=== PATIENT | male | born 1990 | race Caucasian/White ===

== ENCOUNTER → 2023-08-09 | Outpatient (CLI) | payer SELFPAY ==
--- NOTE | 2023-08-09 16:42 | CT_ITS ---
STUDY: CT LEFT FOOT REASON FOR EXAM: Male, 32 years old. CONTUSION L FOOT RADIATION DOSAGE (If Supplied By Facility): CTDIvol = ( 19.84 ) mGy, DLP = ( 541.70 ) mGycm TECHNIQUE: Thin section transaxial imaging of the foot was obtained, with sagittal and coronal reconstructed images. Individualized dose optimization techniques were used for this CT. COMPARISON: None. FINDINGS: Normal talus, calcaneus, and tarsal bones. Normal visualized tibiotalar, subtalar, talonavicular, calcaneocuboid, tarsal and tarsometatarsal articulations. Normal metatarsi. Normal metatarsophalangeal joint of the great toe. Normal tibial and fibular sesamoid bones. Normal interphalangeal joint of the great toe. Normal phalanges of the great toe. Normal second through fifth metatarsophalangeal joints. Normal interphalangeal joints and phalanges of the lesser toes. Mild diffuse tenderness changes in the subcutaneous fat of the foot more severe along the lateral aspect. There is a slightly hazy appearance to the peroneal tendon is grossly intact although cannot definitively exclude tendinitis. MRI is recommended for further evaluation of the tendons and ligaments at clinically warranted. CT/Extremity Lower without Contra IMPRESSION: No evidence for acute fracture, dislocation or other significant bony pathology. Question changes of tendinitis of the peroneal tendon. MRI recommended for more definitive evaluation of the tendons and ligaments if clinically warranted Electronically Signed: Meet Villavicencio MD at 17:19 EDT Reading Location ID and State: [facility] / [place] Tel , Service support ,
== END | disposition home or self-care (01) ==
PROVIDERS: PCP Family Medicine; Referring Provider Physician Assistant Surgical; Visit Provider Physician Assistant Surgical
DX: S90.32XA Contusion of left foot, initial encounter (principal); M25.475 Effusion, left foot; X58.XXXA Exposure to other specified factors, initial encounter
CPT/HCPCS: 73700